=== PATIENT | male | born 1960 | race Caucasian/White ===

== ENCOUNTER 2021-04-04 10:04 | Emergency (ER) | payer OTHER, BC ==
[2021-04-04] MEDS: BUFFERED LIDOCAINE 10 ML SYRINGE SUBQ STA (12:02)
[2021-04-04] MEDS: TETANUS/DIPHTHERIA/PERTUSSIS 0.5 ML SYRINGE IM ONE (12:03)
--- NOTE | 2021-04-04 12:19 | ED Physician Documentation ---
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 It hit his right thumb sustaining damage to the nail in the tip. No other injuries. Review of Systems Constitutional: reports: Reviewed and negative Eyes: reports: Reviewed and negative Ears: reports: Reviewed and negative Nose: reports: Reviewed and negative Throat: reports: Reviewed and negative Cardiac: reports: Reviewed and negative PD PAST MEDICAL HISTORY - Present Medications Home Medications: Ambulatory Orders Medication Instructions Recorded Confirmed HYDROcod/ACETAM 5/325 [Bastrop 5/325] 1 - 2 tab PO Q6H PRN #15 tablet 04/04/21 cephALEXin [Keflex] 500 mg PO Q6H #28 cap 04/04/21 - Allergies Allergies/Adverse Reactions: Allergies Allergy/AdvReac Type Severity Reaction Status Date / Time No Known Drug Allergies Allergy Verified 04/04/21 10:14 PD ED PE NORMAL - Vitals Vital signs reviewed: Yes - General General: Alert and oriented X 3, No acute distress - Extremities Extremities: Other (Focused examination of the right thumb demonstrates that he has a laceration that goes through the pulp and then transect the nail diagonally with a large subungual hematoma and significant tenderness at the tip.) - Neuro Neuro: Alert and oriented X 3, Normal speech Results - Vitals Vitals: Vital Signs - 24 hr 04/04/21 04/04/21 10:10 13:21 Temperature 36.1 C L 36.4 C L Heart Rate 55 L 70 Respiratory 18 15 Rate Blood Pressure 145/80 H 153/88 H O2 Saturation 100 100 Oxygen O2 Source Room air - Rads (name of study) Three-view x-ray of the right thumb demonstrates some calcifications which I think are probably tiny bony fragments from the tuft. Radiology: EMP read contemporaneously Procedures - General procedure General procedure: The left thumb was prepped and draped and a digital block with buffered lidocaine was instilled with excellent anesthesia. Became clear that the nail was completely avulsed and the nail was removed. There was really no nailbed laceration, just a laceration around the tuft and to the side. This was closed on the skin with 9x4 0 nylon sutures. And 2x5 0 Vicryl sutures. Patient tolerated well. Departure - Departure Disposition: 01 Home, Self Care Clinical Impression: Thumb laceration Qualifiers: Encounter type: initial encounter Damage to nail status: with damage Foreign body presence: without foreign body Laterality: right Qualified Code(s): S61.111A - Laceration without foreign body of right thumb with damage to nail, initial encounter Open fracture of thumb Qualifiers: Encounter type: initial encounter Phalanx: distal Fracture alignment: nondisplaced Laterality: right Qualified Code(s): S62.524B - Nondisplaced fracture of distal phalanx of right thumb, initial encounter for open fracture Condition: Good Record reviewed to determine appropriate education?: Yes Instructions: ED Laceration All Prescriptions: cephALEXin [Keflex] 500 mg PO Q6H #28 cap HYDROcod/ACETAM 5/325 [Bastrop 5/325] 1 - 2 tab PO Q6H PRN #15 tablet PRN Reason: Pain Comments: Prescription sent electronically to [facility] in [place]. Follow-up with your doctor in a week for wound check. Suture removal in 2 weeks. Current dressing can be removed in 36 hours at which time it can be briefly washed with soap and water, then apply antibiotic ointment and a nonstick dressing. I am prescribing a short course of narcotic pain medication for you. These are potentially dangerous and addictive medications that should be used carefully. These medications may constipate you. Take an hicm-ath-hlcrokd stool softener (docusate) twice daily with plenty of water while taking these medications. If you go 24 hours without a bowel movement, take ctvl-vzx-tbrievl miralax, per package instructions. Do not drink or drive while taking these medications. If you received narcotic or sedating medications while in the emergency department, do not drive for 24 hours. Store this medication in a safe, secure place and out of reach of children. It is a violation of federal law to give or sell this medication to another person or to use in a manner other than prescribed. The ED will not refill narcotic prescriptions, including prescriptions lost or stolen. To dispose of unwanted medications: 1. [facility] [address] in [place] has a medication drop box. They accept prescription medications (in pill form) Sunday through Sunday 9:00 a.m. to 5:00 p.m. 2. The [facility] [place] [employer] accepts prescription medications (in pill form only) for disposal year round. Call for more information. 3. Contact the [facility] for the next [facility] sponsored prescription bentley g collection event. , [phone], or [phone]; Note that many narcotic pain relievers also contain Tylenol/acetaminophen. Please ensure that your total dose of acetaminophen from all sources does not exceed 3 g (3000 mg) per day. Forms: Activity restrictions Discharge Date/Time: 04/04/21 13:23
--- NOTE | 2021-04-04 12:48 | XRAY Report ---
PROCEDURE: Finger(s) RT INDICATIONS: thumb inj TECHNIQUE: PA hand, 3 views of the thumb acquired. COMPARISON: None. FINDINGS: Bones: No acute fractures or dislocations. No suspicious bony lesions. Soft tissues: Small calcific densities are seen volar to the chest of the first distal phalanx. Soft tissue irregularity at the tip of the thumb is consistent with a laceration. IMPRESSION: No acute osseous fracture identified. Soft tissue laceration is seen at the distal thumb. Nonspecific calcifications or radiopaque foreign bodies are seen volar to the first distal phalangeal tuft. Reviewed by: Ck Schmidt MD on 04/04/2021 12:47 PM PST Approved by: Ck Schmidt MD on 04/04/2021 12:47 PM PST Station ID: [id number]
[2021-04-04 13:23] VITALS: BP 153/88
== END 2021-04-04 13:23 | disposition home or self-care (01) ==
LOC: ED 10:04
DX: S62.524B Nondisplaced fracture of distal phalanx of right thumb, initial encounter for open fracture (principal); W26.8XXA Contact with other sharp object(s), not elsewhere classified, initial encounter; Y93.89 Activity, other specified; Y99.0 Civilian activity done for income or pay; Z23 Encounter for immunization
CPT/HCPCS: 11730; 12002; 90471; 99283